=== PATIENT | female | born 1955 | race Hispanic/Latino ===

== ENCOUNTER 2017-11-06 11:50 | Outpatient (CLI) | payer BC | END 2017-11-06 11:51 | disposition home or self-care (01) | LOC: BICRAD 11:50 | PROVIDERS: ATTEND Physician Assistant Medical | DX: K59.00 Constipation, unspecified (principal); R14.0 Abdominal distension (gaseous) | CPT/HCPCS: 74022 ==

== ENCOUNTER 2018-05-10 08:59 | Outpatient (CLI) | payer BC | END 2018-05-10 09:00 | disposition home or self-care (01) | LOC: BICMAMMO 08:59 | PROVIDERS: ATTEND Family Medicine | DX: Z12.31 Encounter for screening mammogram for malignant neoplasm of breast (principal); Z80.3 Family history of malignant neoplasm of breast | CPT/HCPCS: 77063; 77067 ==

== ENCOUNTER 2018-10-31 10:07 | Outpatient (CLI) | payer BC ==
--- NOTE | 2018-10-31 12:27 | MRI ---
MRI RIGHT KNEE: 10/31/2018 PROVIDED CLINICAL HISTORY: Right knee pain. FINDINGS: The anterior cruciate ligament, posterior cruciate ligament, medial collateral ligament, and lateral collateral ligament complex demonstrate an intact MR appearance, as does the extensor mechanism. There is a complex, nondisplaced tear involving the body and body-posterior horn junction of the medi al meniscus. The lateral meniscus demonstrates no evidence for tear. No focal articular cartilage defect is apparent. The amount of fluid within the knee joint appears physiologic. Subcortical cyst-like change is noted within the anterior aspect of the proximal fibula, adjacent to the proximal tibiofibular joint. Regional marrow and muscular signal appear otherwise unremarkable. IMPRESSION: Medial meniscal tear, as described. POS: [facility]
== END 2018-10-31 10:08 | disposition home or self-care (01) ==
LOC: SCSMRI 10:07
PROVIDERS: ATTEND Family Medicine
DX: M25.561 Pain in right knee (principal); S83.241A Other tear of medial meniscus, current injury, right knee, initial encounter

== ENCOUNTER 2018-12-05 13:35 | Observation (INO) | payer BC ==
--- NOTE | 2018-12-05 13:48 | PDOC.FPRHP ---
- History of Present Illness Chief Complaint: Dysarthria History of Present Illness: 63 yo f complains of a fall in home on Sunday night after taking tramadol that the doctor had given her for pain of her knee (has a meniscal tear) with surgery planned next week. She went to [facility] Sunday night and they came her "something to counteract the reaction to the tramadol." They also did a head CT which was normal. Sunday came and saw the patient and she says she was fine. Then later that evening she was talking with her brothers and they told her she sounded sick. So this morning she went and saw Dr. Mathews, who said the patient was slurring her words. She states her left leg has been week, but she has been using it more since she hurt her knee (right). Endorses changes in her vision. States it feels like she erin falls asleep. Denies tingling/numbness. Weakness in left leg is new and recently started after she passed out. ED Course: Direct admit from Dr Mathews - Allergies/Adverse Reactions Allergies Allergy/AdvReac Type Severity Reaction Status Date / Time vancomycin Allergy Verified 10/29/14 08:38 - Home Medications Medication Instructions Recorded Confirmed Type ALPRAZolam [Xanax XR] 2 mg PO HS 10/29/14 12/05/18 History buPROPion HCl [buPROPion HCl SR] 150 mg PO DAILY 12/05/18 12/05/18 History - History PMHx: recent syncopal episode, IBS, OA, Anxiety, HTN, Insomnia, hypothyroidism, HLD, Righ meniscal tear, tinnitus/hearing loss (wears hearing aids, Hx of Bipolar/MDD but not on medications currently PSHx: None FHx: Father-diabetes, CVA, Mother-CVA Social: hx of alcohol abuse (sober 13 years); denies smoking, used to smoke at 23 years old, but quit shortly after that; no hx of drug use - Review of Systems General: denies: fever/chills, weight/appetite/sleep changes Eyes: reports: vision changes. denies: eye pain ENT: reports: nasal congestion, rhinorrhea Respiratory: reports: cough, congestion. denies: shortness of breath Cardiovascular: denies: chest pain, palpitation Gastrointestinal: reports: diarrhea (IBS), constipation (ibs). denies: nausea, vomiting Genitourinary: denies: incontinence, dysuria Skin: denies: rashes, lesions Musculoskeletal: reports: pain (knee), stiffness (R knee) Neurological: reports: weakness. denies: seizure Psychological: reports: anxiety, depression - Vital signs BP: 135/77 HR: 74 RR: 16 Tmax: 98.0 Pox: 99% on RA Wt: 67kg - Physical Exam Constitutional: NAD, awake, alert and oriented, well developed, other ( dysarthria, slowed speech and thought.) HEENT: normocephalic and atraumatic, PERRLA, EOMI, conjunctiva clear, grossly normal hearing, MMM, oropharynx clear Neck: supple, trachea midline, no bruits Heart: RRR, normal S1/S2, no murmurs/rubs/gallops, pulses present, no edema Lungs: CTAB, no respiratory distress, good air movement Abdomen: soft, non-tender, bowel sounds present Musculoskeletal: normal structure, normal tone Neurological: CN II-XII intact, DTRs 2+, other (right forearm decreased sensation to temperature) -Neurological: trouble following commands; decreased bag printer strength on left side 5/5 b/l lower extremity strength except for flexion/extension of left foot was 4 /5 mild pronator drift on left sensation to touch, temp intact with exception of right arm to temp. cerebellar testing slow but able to complete Skin: no rash/lesions, good turgor, capillary refill <2 seconds Psychiatric: normal mood and affect, good judgment and insight (unable to tell difference in speech), intact recent and remote memory (slowed) FMR H&P: Results - Labs Result Diagrams: 12/05/18 15:20 12/05/18 15:20 FMR H&P: A/P - Problem List (1) CVA (cerebral vascular accident) Current Visit: Yes Status: Acute Code(s): I63.9 - CEREBRAL INFARCTION, UNSPECIFIED (2) Depression Current Visit: Yes Status: Chronic Code(s): F32.9 - MAJOR DEPRESSIVE DISORDER, SINGLE EPISODE, UNSPECIFIED (3) Anxiety Current Visit: Yes Status: Chronic Code(s): F41.9 - ANXIETY DISORDER, UNSPECIFIED (4) Osteoarthritis Current Visit: Yes Status: Chronic Code(s): M19.90 - UNSPECIFIED OSTEOARTHRITIS, UNSPECIFIED SITE (5) HTN (hypertension) Current Visit: Yes Status: Chronic Code(s): I10 - ESSENTIAL (PRIMARY) HYPERTENSION (6) Hypothyroidism Current Visit: Yes Status: Chronic Code(s): E03.9 - HYPOTHYROIDISM, UNSPECIFIED (7) HLD (hyperlipidemia) Current Visit: Yes Status: Chronic Code(s): E78.5 - HYPERLIPIDEMIA, UNSPECIFIED (8) Insomnia Current Visit: Yes Status: Chronic Code(s): G47.00 - INSOMNIA, UNSPECIFIED (9) Tinnitus Current Visit: Yes Status: Chronic Code(s): H93.19 - TINNITUS, UNSPECIFIED EAR (10) IBS (irritable bowel syndrome) Current Visit: Yes Status: Chronic - Plan 63yo female with pmh HTN, HLD, hypothyroidism and recent syncope/fall presents for evaluation for CVA vs subdural hematoma CVA vs subdural hematoma - Fell 12/03/18, CT at [facility] normal at that time - Dysarthria, slowed speech, distal left sided weakness, right temp sensation loss - CBC, CMP, TSH, PT/INR, A1c, Mg, Phos ordered - CT/CTA head and neck - MRI, will need anesthesia consult due to claustrophobia - Echo ordered - Neurochecks q4h - Start Atorvastatin & ASA after head CT Encephalopathy - UDS ordered - No signs of infection, UA ordered - No hypoxia - Manage as above Possible Syncope - Ordered EKG, UDS, orthostatics Depression - Continue home Wellbutrin Anxiety - Will hold home Alprazolam for now Insomnia - Will hold Alprazolam for now HTN HLD - Statin after CT IBS - Continue home meds Hypothyroidism - Continue home meds Right meniscal tear - Holding Tramadol due to fall, Tylenol for pain Hx of Bipolar - Pt not taking medications for this. Stable Code Status: FULL DVT ppx: SCDs PCP: Dr Mathews FMR H&P: Upper Level - Pertinent history 63 yo f with pmhx of htn, hld presents s/p fall on Sunday after taking tramadol for a right knee meniscal tear and since that times has noticed some left leg weakness, confusion (trouble understanding), and dysarthria. - Plan Date/Time: 12/05/18 1348 A/P: #Focal neuro deficits suspicious for CVA: dysarthria, comprehension, left leg weakness, decreased left hand bag printer strength, decreased sensation to pain on right arm. Will order a CT head w/o contrast, and CTA head and neck, as well as a cbc, cmp, lipid profile, tsh, hba1c, EKG, TTE, mg, phosph to further evaluate for a CVA:Will order MRI for the morning and consult anesthesia. Will start atorvastatin 40mg pending CT head and will give aspirin pending head CT #Encephalopathy-difficulty with comprehension, dysarthia. CT head, CTA Head/neck , MRI, labs, pt afebrile and so other s/s of infection. Not hypoxic. Concern for intracranial hemorrhage after recent syncopal episode on Sunday. #Recent syncopal episode-now with deficits (see above); will monitor on tele and get an EKG, stroke workup, orthostatics #HTN-will order a CT head w/o contrast to rule out a bleed, and base bp goals on imaging. #HLD-will restart pt on a statin after obtaining CT head w/o contrast. #IBS-restart home meds #hypothyroidism-ordered tsh, restart home meds #Righ meniscal tear-monitor, tylenol prn pain #tinnitus/hearing loss (wears hearing aids, #OA-monitor #Anxiety-monitor #Insomnia-monitor #Hx of Bipolar/MDD but not on medications currently-monitor DVT-scds, consider lovenox pending head CT Code-full dispo-anticipate two nights H. John Arechiga MD, PGY-2 I, [], have evaluated this patient and agree with findings/plan as outlined by internet sales director resident. Pertinent changes/additions are listed here. Addendum - Attending - Attending Attestation Date/Time: 12/05/18 [id number] I personally evaluated the patient and discussed the management with Dr. Rod /John. I agree with the History, Examination, Assessment and Plan documented above with any addition or exceptions noted below. Patient here for concern for acute neurological insult. She has 2-3 days of intermittent altered mentation, some L sided weakness, and change in speech noticed by both patient and family. There also may be some intermittent confusion. Reports symptoms started after a fall after taking Tramadol on Sunday, and patient has not taken medication since that time. On exam, she has some mild dysarthria and possible mild slurring of speech. Exam overall non focal on my exam, diffuse weakness. She did have issues with speech repetition. Cerebellar testing overall normal for me. Speech and thought content appears slowed overall. Patient to be admitted for CVA r/o and encephalopathy workup. She does have a degree of conductive aphasia that could signify focal deficit. Check CT brain to ensure no hemorrhage or hematoma formation from her fall. CTA head and neck, and obtain MRI. Neuro checks. Monitor vitals and HR/rhythm. Check orthostatics. Encephalopathy workup. Consider neuro consult if abnormalites noted. Further mgmt per initial results.
[2018-12-05 13:50] VITALS: BMI 24.6
[2018-12-05] MEDS ORDERED: Ondansetron ODT 4 MG TAB PO PRN (14:45)
[2018-12-05 15:28] LABS: #Eosinphils 0.1 thou/uL (0.0-0.7); #Lymphocytes 1.1 thou/uL (1.20-3.40); #Monocytes 0.4 thou/uL (0.11-0.59); #Neutrophils 3.9 thou/uL (1.40-6.50); %Basophils 0.7 % (0.0-1.0); %Eosinophils 2.5 % (0.0-10.0); %Lymphocytes 19.9 % (21.0-51.0); %Monocytes 6.5 % (0.0-10.0); %Neutrophils 70.4 % (42.0-75.0); Hemoglobin 11.5 g/dL (12.0-16.0); Mean Corpuscular Hemoglobin 28.2 pg (27.0-31.0); Mean Corpuscular Volume 88.1 fL (78.0-98.0); Mean Platelet Volume 6.2 fL (7.4-10.4); Platelet Count 308 thou/uL (130-400); Red Blood Cell (RBC) Count 4.09 mill/uL (4.20-5.40); White Blood Cell (WBC) Count 5.6 thou/uL (4.8-10.8)
[2018-12-05 15:35] LABS: PTT 29.2 SEC (22.9-36.1)
[2018-12-05 16:20] LABS: Anion Gap 15 mmol/L (10-20); BUN (Urea Nitrogen) 9 mg/dL (9.8-20.1); Calc. Creatinine Clearance 77 mL/min (70-130); Calcium 9.5 mg/dL (7.8-10.44); Carbon Dioxide 21 mmol/L (23-31); Chloride 109 mmol/L (98-107); Estimated GFR-MDRD 72; Glucose 89 mg/dL (80-115); Potassium 3.6 mmol/L (3.5-5.1); Sodium 141 mmol/L (136-145)
[2018-12-05 16:21] LABS: Acetaminophen Less than 6.0 mcg/mL (10.0-30.0); Alcohol Less than 10 mg/dL (Less than 10); Salicylate Less than 8.0 mg/dL (15.0-30.0)
[2018-12-05] MEDS ORDERED: ISOVUE-370 76%-LOCM 1 ML ONE (16:26)
--- NOTE | 2018-12-05 17:40 | CT ---
CTA OF THE BRAIN WITH AND WITHOUT IV CONTRAST: 12/05/18 INDICATION: History of altered mental status and left weakness. COMPARISON: Prior CT of the brain dated 03/20/16. FINDINGS: NONCONTRAST BRAIN: No acute infarct, hemorrhage, or hydrocephalus is present. Septum pellucidum and third ventricle are midline. Skull and extracranial soft tissues appear within normal limits. There is an air fluid leve l within the left maxillary sinus. There is moderate mucosal thickening within the left maxillary sin us. CTA OF THE HEAD: No hemodynamically significant stenosis, occlusion or aneurysmal formation is demonstrated. No area o f abnormal enhancement is demonstrated. Septum pellucidum and third ventricle are midline. CTA OF THE NECK: Dental amalgam limits visualization of the oral cavity. The visualized aerodigestive tract is normal appearing. No pathologically enlarged lymph nodes are evident. The thyroid, submandibular, and paroti d glands appear within normal limits. No hemodynamically significant stenosis is seen involving the i nternal carotid arteries or vertebral arteries bilaterally. The aortic arch and great vessel origins appear within normal limits. The lung apices are clear. No acute osseous abnormality is evident. There is scattered degenerative and osteoarthritic change. IMPRESSION: 1. No hemodynamically significant stenosis, occlusion or aneurysmal formation demonstrated. 2. No abnormal enhancement seen. 3. No acute intracranial abnormalities. POS: [place]
[2018-12-05] MEDS ORDERED: Aspirin Chewable 81 MG TAB PO SCH (18:15)
[2018-12-05] MEDS: Acetaminophen 500 MG TAB PO PRN (18:20)
[2018-12-05 19:04] LABS: Amphetamine Not Detected (NotDetected); Barbiturates Screen Not Detected (NotDetected); Benzodiazepine Screen Detected (NotDetected); Cocaine Metabolite Screen Not Detected (NotDetected); Medtox Control Line Valid? VALID (VALID); Medtox Reader # READER 1; Methadone Not Detected (NotDetected); Methamphetamine Not Detected (NotDetected); Opiate Screen Not Detected (NotDetected); Oxycodone Screen Not Detected (NotDetected); Phencyclidine (PCP) Not Detected (NotDetected); THC/Cannabinoid Screen Not Detected (NotDetected); Tricyclic Screen Not Detected (NotDetected)
[2018-12-05] MEDS ORDERED: ALPRAZOLAM 2 MG PO SCH (21:00)
[2018-12-05] MEDS ORDERED: ALPRAZolam 1 MG TAB PO PRN (21:03)
[2018-12-06] MEDS: Acetaminophen 500 MG TAB PO PRN (05:43)
[2018-12-06 06:24] LABS: Anion Gap 10 mmol/L (10-20); BUN (Urea Nitrogen) 8 mg/dL (9.8-20.1); Calc. Creatinine Clearance 78 mL/min (70-130); Carbon Dioxide 23 mmol/L (23-31); Chloride 110 mmol/L (98-107); Cholesterol 229 mg/dl (< 200 Desired); Estimated GFR-MDRD 73; Glucose 85 mg/dL (80-115); HDL Cholesterol 46 mg/dL (>60 Neg Risk); LDL Cholesterol, Calculated 162 mg/dL; Potassium 3.3 mmol/L (3.5-5.1); Sodium 140 mmol/L (136-145); Triglycerides 103 mg/dL (Less than 150)
--- NOTE | 2018-12-06 06:28 | PDOC.FM ---
- Subjective Subjective: Reports anxiety. Anxious about when MRI will be preformed. Denies weakness, paresthesias. A&Ox3. No overnight events. - Objective MAR Reviewed: Yes Vital Signs & Weight: Vital Signs (12 hours) Temp Pulse Resp BP Pulse Ox 12/06/18 04:00 99.2 F 62 16 105/66 98 12/06/18 00:00 98.6 F 69 16 113/56 L 97 12/05/18 20:00 98.2 F 68 16 133/82 97 Weight Weight 67.132 kg I&O: 12/04/18 12/05/18 12/06/18 06:59 06:59 06:59 Intake Total 500 Balance 500 Result Diagrams: 12/05/18 15:20 12/06/18 05:31 Phys Exam - Physical Examination Constitutional: NAD HEENT: moist MMs Neck: supple Respiratory: no wheezing, clear to auscultation bilateral Cardiovascular: RRR, no significant murmur Gastrointestinal: soft, non-tender, positive bowel sounds Musculoskeletal: no edema Neurological: moves all 4 limbs DTR 2+ biceps/patellar Psychiatric: normal affect, A&O x 3 Skin: normal turgor Dx/Plan (1) CVA (cerebral vascular accident) Code(s): I63.9 - CEREBRAL INFARCTION, UNSPECIFIED Status: Acute (2) Depression Code(s): F32.9 - MAJOR DEPRESSIVE DISORDER, SINGLE EPISODE, UNSPECIFIED Status : Chronic (3) Anxiety Code(s): F41.9 - ANXIETY DISORDER, UNSPECIFIED Status: Chronic (4) Osteoarthritis Code(s): M19.90 - UNSPECIFIED OSTEOARTHRITIS, UNSPECIFIED SITE Status: Chronic (5) HTN (hypertension) Code(s): I10 - ESSENTIAL (PRIMARY) HYPERTENSION Status: Chronic (6) Hypothyroidism Code(s): E03.9 - HYPOTHYROIDISM, UNSPECIFIED Status: Chronic (7) HLD (hyperlipidemia) Code(s): E78.5 - HYPERLIPIDEMIA, UNSPECIFIED Status: Chronic (8) Insomnia Code(s): G47.00 - INSOMNIA, UNSPECIFIED Status: Chronic (9) Tinnitus Code(s): H93.19 - TINNITUS, UNSPECIFIED EAR Status: Chronic (10) IBS (irritable bowel syndrome) Status: Chronic - Plan Plan: 63yo female with pmh HTN, HLD, hypothyroidism and recent syncope/fall presents for evaluation for CVA vs subdural hematoma CVA vs subdural hematoma - Fell 12/03/18, CT at [facility] normal at that time - Dysarthria, slowed speech, distal left sided weakness, right temp sensation loss - CT/CTA head and neck nml - MRI today, will need anesthesia consult due to claustrophobia - Echo ordered - Neurochecks q4h - Start Atorvastatin & ASA after head CT Encephalopathy - UDS neg with exception of BZs, pt on alprazolam at home - No signs of infection - No hypoxia - Manage as above Possible Syncope - EKG nml, UDS neg with exception of BZs, pt on alprazolam at home - Orthostatics neg Depression - Continue home Wellbutrin Anxiety - Will hold home Alprazolam for now Insomnia - Will hold Alprazolam for now HTN HLD - Start Statin IBS - Continue home meds Hypothyroidism - Continue home meds Right meniscal tear - Holding Tramadol due to fall, Tylenol for pain Hx of Bipolar - Pt not taking medications for this. Stable Code Status: FULL DVT ppx: SCDs PCP: Dr Mathews Addendum - Attending - Attending Attestation Date/Time: 12/06/18 [id number] I personally evaluated the patient and discussed the management with Dr. Rod. I agree with the History, Examination, Assessment and Plan documented above with any addition or exceptions noted below. Patient doing well, speech somewhat improved. Awaiting MRI to see if this is due to possible mild CVA. Speech therapy has recommended outpatient ST and awaiting PT recs. Otherwise, workup negative. She has good risk factor control but hyperlipidemia and statin has been started. Likely discharge this afternoon with normal MRI, otherwise will need Neuro consult if CVA found.
[2018-12-06] MEDS ORDERED: Aspirin 81 mg Enteric Coated Tablet PO SCH ×2 (09:00)
[2018-12-06] MEDS ORDERED: Bupropion 150 MG SR TAB PO SCH (09:00)
[2018-12-06 11:27] VITALS: TEMP 98.1
[2018-12-06 12:22] VITALS: BP 143/87
[2018-12-06] MEDS ORDERED: Midazolam HCl 2 mg/2 ml Vial ONE (13:30)
--- NOTE | 2018-12-06 14:43 | MRI ---
MRI BRAIN WITH AND WITHOUT CONTRAST: DATE: 12-06-18 HISTORY: 63-year-old female with acute stroke symptoms, dysarthria and left upper extremity weakness. TECHNIQUE: Multiple sequences obtained in axial, sagittal, and coronal planes; pre and post IV injection of gado linium-based contrast agent: 15 mL MultiHance FINDINGS: The ventricles are normal in size and configuration. There is no major intraaxial signal abnormality , restricted diffusion, abnormal intraaxial enhancement, mass, midline shift or any other mass effect , recent intraaxial hemorrhage, or extraaxial fluid collection. IMPRESSION: Normal. jn POS: [facility]
[2018-12-06] MEDS ORDERED: PROPOFOL 200 MG/20 ML VIAL ONE (15:47)
[2018-12-06] MEDS ORDERED: Atorvastatin Calcium 40 MG TAB PO SCH (21:00)
--- NOTE | 2018-12-06 22:15 | DIS ---
DATE OF ADMISSION: 12/05/2018 DATE OF DISCHARGE: 12/06/2018 RESIDENT: Sadia Rod MD, PGY-1. ADMITTING ATTENDING: Jose D Bahena MD DISCHARGE ATTENDING: Jose D Bahena MD CONSULTS: None. PROCEDURES: 1. CTA, no hemodynamically significant stenosis, occlusion, or aneurysmal formation demonstrated. No abnormal enhancement is seen. No acute intracranial abnormality. 2. Brain MRI, normal. PRIMARY DIAGNOSES: 1. Dysarthria. 2. Encephalopathy. SECONDARY DIAGNOSES: 1. Possible syncope. 2. Depression. 3. Anxiety. 4. Insomnia. 5. Hypertension. 6. Hyperlipidemia. 7. Irritable bowel syndrome. 8. Hypothyroidism. 9. Right meniscal tear. 10. History of bipolar. DISCHARGE MEDICATIONS: 1. Aspirin 81 mg daily. 2. Atorvastatin 40 mg daily. 3. Bupropion 150 mg daily. 4. Alprazolam 2 mg at bedtime. HISTORY OF PRESENT ILLNESS/HOSPITAL COURSE: Ms. Davila is a 63-year-old female, who presented to the ED as a direct admit from Dr. Mathews due to dysarthria after a fall in her home 2 nights prior, where she hit her head after taking an unknown amount of tramadol. She went in after her fall to [facility], where CT was performed and was normal. Sunday, [facility] had come to evaluate the patient and said she was fine. Later that evening, she was talking to family members on the phone and they noticed her speech was slurred as well as when she went in to Dr. Mathews, she reported similar findings. She states that her left leg has been weak. She noticed this because she has been using her left leg more since she hit her right knee. Endorses changes in her vision. Her speech was also very slowed. On exam, her vital signs were all within normal limits. She did have slurred speech and thought, and dysarthria. Her neurological exam was normal with the exception of decreased forearm sensation to temperature and left wrist tool and die technician was 4/5, as well as left plantar flexion and extension. She did have a mild pronator drift on the left side and her cerebellar testing was slow, but she was able to complete it. Her basic labs were ordered that were all within normal limits with the exception of her UDS being positive for benzodiazepines, which she has a home prescription for and her cholesterol was elevated at 229. Echo was performed and is pending results. This will be followed up. MRI was normal. CT, CTA head and neck, normal. She was started on atorvastatin and aspirin. Her dysarthria did seem to improve throughout her hospitalization. As far as her possible syncope, EKG and UDS normal. Orthostatics were negative. Her chronic medical problems of depression, anxiety, insomnia, hypertension, hyperlipidemia, IBS, hypothyroidism. Continued with home medications with the exception of holding alprazolam due to her recent fall and poor mentation. DISPOSITION: Stable. DISCHARGE INSTRUCTIONS: 1. Location: Home. 2. Diet: Heart healthy. 3. Activity: No restrictions. 4. Followup: Follow up with Dr. Mathews within 7 days. Job ID: [id number]
== END 2018-12-06 16:12 | disposition home or self-care (01) ==
LOC: INTOOBSV 13:35 → 2SE 13:35
PROVIDERS: ADMIT Family Medicine; ATTEND Family Medicine
DX: R47.1 Dysarthria and anarthria (principal); G93.40 Encephalopathy, unspecified; F41.9 Anxiety disorder, unspecified; F31.9 Bipolar disorder, unspecified; I10 Essential (primary) hypertension; E78.5 Hyperlipidemia, unspecified; K58.9 Irritable bowel syndrome, unspecified; E03.9 Hypothyroidism, unspecified; M19.90 Unspecified osteoarthritis, unspecified site; G47.00 Insomnia, unspecified; S83.241A Other tear of medial meniscus, current injury, right knee, initial encounter; Z87.891 Personal history of nicotine dependence; Z88.1 Allergy status to other antibiotic agents; Z79.82 Long term (current) use of aspirin; Z79.899 Other long term (current) drug therapy
CPT/HCPCS: 36415; 70496; 70498; 70553; 80048; 80061; 80306; 80307; 84439; 84443; 85025; 85610; 85730; 93306; G0378; J2250; J2704; Q0162; Q9966

== ENCOUNTER → 2019-03-18 | Day surgery (SDC) | payer BC ==
--- NOTE | 2019-03-18 14:18 | CT ---
CT of the abdomen and pelvis with and without IV contrast utilizing an enterography protocol Indication: History of abdominal distention and chronic constipation for the last 4-5 years. TECHNIQUE: Multiple CT images were obtained of the abdomen and pelvis with and without IV contrast utilizing ent erography protocol. 100 mL of Isovue-370 was utilized in addition to p.o. intake of VoLumen. Axial, sagittal and coronal reformatted images were constructed from the raw data. COMPARISON: Prior CT the abdomen and pelvis with contrast dated May 22, 2016. FINDINGS: The lung bases are clear. No focal hepatic lesion is evident. The pancreas, spleen, adrenal glands and left kidney are normal appearing. There is a small subcentim eter cyst seen within the right mid kidney. There are mild vascular calcification involving abdominal aorta. No enlarged lymph nodes or free fluid is identified. The small bowel is of normal caliber. The mucosal pattern appears within normal limits. No overt wall thickening is evident. The visualized TI is normal-appearing. There is a normal appendix within the right lower quadrant of the abdomen. There is fluid distention of the colon from Volumen administration. The colon appears within normal l imits. The bladder is partially decompressed. The rectum and perirectal soft tissues are unremarkable appear ing. There is scattered degenerative and osteoarthritic change present. IMPRESSION: No suspicious focal bowel abnormality seen. Transcribed Date/Time: 03/18/2019 3:16 PM
== END ==
LOC: RAD 12:26 → EDSTATUS 14:00
PROVIDERS: ATTEND Internal Medicine Gastroenterology
DX: K59.09 Other constipation (principal); R14.0 Abdominal distension (gaseous)
CPT/HCPCS: 74178; 82565

== ENCOUNTER 2019-08-21 07:48 | Observation (INO) | payer BC ==
[2019-08-21] MEDS ORDERED: Aspirin 325 MG TAB ONE (08:48)
--- NOTE | 2019-08-21 09:52 | PDOC.FPRHP ---
- History of Present Illness Chief Complaint: fall History of Present Illness: This is a 63yo F who presented to the ER today from [facility] after a fall early this morning. The patient states she was running along a track around 0300. She was looking at her phone and then next thing she knew she was falling down a hill next to the track. She is unsure how it happened. She denies any headache, vision changes, SOB, chest pain or palpitations at the time. She is unsure if she lost consciousness but she remembers thinking "what happened" after she fell down the hill. Denies any post-ictal confusion or state. Denies any loss of bowels. She was able to crawl back up the hill and get help. She states she has no hx of cardiac issues. Patient states that she did have numbness in her left leg about 2 days ago that resolved on its own. She did not notice any slurred speech with this episode this morning, but per ER report patient had slurred speech. Patient states that she has been under a lot of stress lately. She states that her mother 2 years ago and that her sister blames her. She states this has been a huge stressor for her lately. She takes xanax and wellbutrin for her anxiety/depression. ED Course: CT brain neg; CTA head/neck: normal; EKG NSR - Allergies/Adverse Reactions Allergies Allergy/AdvReac Type Severity Reaction Status Date / Time vancomycin Allergy Verified 10/29/14 08:38 - Home Medications Medication Instructions Recorded Confirmed Type buPROPion HCl [buPROPion HCl SR] 150 mg PO DAILY 12/05/18 12/05/18 History ALPRAZolam 2 mg PO HS 08/21/19 08/21/19 History Naproxen 1 tab PO PRN PRN 08/21/19 08/21/19 History - History PMHx: anxiety/depression, migraine headaches PSHx: R knee meniscus repair, breast implants and removal FHx: mother & father - strokes, father - DM, BPH, GM - pancreatic cancer Social: smoked from age [age] - a few cigs/day - not current smoker, 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 Lives alone. Takes care of her elderly father. Mother 2 years ago and has caused great stress - Review of Systems General: denies: fever/chills, weight/appetite/sleep changes, night sweats, fatigue Eyes: denies: vision changes ENT: denies: nasal congestion Respiratory: denies: cough, congestion, shortness of breath, exercise intolerance Cardiovascular: denies: chest pain, palpitation, edema, paroxysmal nocturnal dyspnea, orthopnea Gastrointestinal: denies: nausea, vomiting, diarrhea, constipation, abdominal pain Genitourinary: denies: dysuria Skin: denies: rashes, lesions Musculoskeletal: denies: pain, tenderness, stiffness, swelling, arthritis/ arthralgias Neurological: reports: numbness. denies: syncope, seizure, weakness Psychological: reports: anxiety, depression - Vital signs BP: 132/80 HR: 70 RR: 16 Tmax: 98.6 Pox: 100% on RA Wt: 70kg - Physical Exam Constitutional: NAD, awake, alert and oriented, well developed HEENT: normocephalic and atraumatic, PERRLA, EOMI, no scleral icterus, grossly normal vision, grossly normal hearing, normal nasal mucosa, MMM Neck: supple, FROM, trachea midline, no LAD, no JVD, no thyromegaly, no bruits Chest: no-tender to palpation, no lesions Heart: RRR, normal S1/S2, no murmurs/rubs/gallops, pulses present, no edema Lungs: CTAB, no respiratory distress, good air movement, no rales/rhonchi, no wheezing, no retractions Abdomen: soft, non-tender, bowel sounds present, no masses/distention Musculoskeletal: normal structure, normal tone, ROM grossly normal Neurological: no focal deficit, CN II-XII intact, normal sensation -Neurological: no dysmetria, no dysdiadochokinesia; strength 5/5 in all extremities; normal gait; no facial droop or slurred speech appreciated Skin: no rash/lesions, good turgor, capillary refill <2 seconds Heme/Lymphatic: no unusual bruising or bleeding, no purpura, no petechia Psychiatric: normal mood and affect, good judgment and insight, intact recent and remote memory -Psychiatric: AXOX3 - knows name, , year FMR H&P: Results - EKG Interpretation EKG: NSR FMR H&P: A/P - Problem List (1) TIA (transient ischemic attack) Current Visit: Yes Status: Acute Code(s): G45.9 - TRANSIENT CEREBRAL ISCHEMIC ATTACK, UNSPECIFIED (2) Anxiety Current Visit: No Status: Chronic Code(s): F41.9 - ANXIETY DISORDER, UNSPECIFIED (3) Depression Current Visit: No Status: Chronic Code(s): F32.9 - MAJOR DEPRESSIVE DISORDER , SINGLE EPISODE, UNSPECIFIED - Plan #TIA r/o Patient presenting after while while running. Hx of left leg numbness 2 days prior. Patient with normal CT brain, CTA head/neck and EKG. Fam hx of CVA. - Will order MRI, patient states she is claustrophobic and will need something to calm her down prior to the procedure. States she has had to "go under" for a prior MRI. She states ativan will not work. - FLP in 11/2018 showing Total chol: 229, TG 103, LDL 162, HDL 46. ASCVD risk of 4.8% - no indication for statin therapy at this time. Will encouraged continued diet and exercise. Home meds show statin, but patient has not been taking. - Will order HbA1c #Normocytic Anemia Hgb 10.4, MCV 89 - Will order iron studies to work up further along with B12/folate #Anxiety/depression - Will continue patient's home meds of xanax and wellbutrin Code: FULL Diet: Reg VTE: SCDs Dispo: admit to stroke, could potentially go later today if MRI can be done or tomorrow Case discussed with Dr. Barkley
[2019-08-21] MEDS ORDERED: Lorazepam 1 MG TAB PO PRN (10:04)
[2019-08-21] MEDS ORDERED: PROPOFOL 200 MG/20 ML VIAL ONE (10:14)
[2019-08-21] MEDS ORDERED: Lidocaine 1% PF 5 ML VIAL ONE (10:14)
[2019-08-21] MEDS ORDERED: Ondansetron PF 4 MG/2 ML Vial IVP PRN (10:35)
[2019-08-21] MEDS ORDERED: Ondansetron ODT 4 MG TAB PO PRN (10:35)
[2019-08-21 11:13] VITALS: BMI 25.2
--- NOTE | 2019-08-21 11:58 | HP ---
I have examined the patient. I have discussed the case with Dr. Jillian Curtis. I agree with her assessment and plan. HISTORY OF PRESENT ILLNESS: Briefly, Ms. Davila is a pleasant 63-year-old lady, who was out running very early this morning. She was looking at her fall, and the next thing she knew she was falling down a hill next to the track. She really did not have any headache, blurred vision, chest pain, or palpitations. She does not remember whether or not she lost consciousness. She went to a local ER, where she was noted to have slurred speech. She had testing done there and then subsequently transferred here. At the outlying ER, her CT brain was negative and CTA of the head and neck was also negative. PHYSICAL EXAMINATION: GENERAL: This morning, she is resting in bed. She is completely awake, alert, oriented, in no distress. VITAL SIGNS: Her blood pressure is 130/80. Her heart rate is 70. She is afebrile, and her room air pulse ox is 100%. EAR, NOSE, AND THROAT: No erythema or exudate. NECK: Supple. No neck stiffness. CARDIAC: Heart rhythm regular. No gallop or murmur noted. LUNGS: Clear. No rales or wheezes. ABDOMEN: Flat and soft. No guarding, rebound, or rigidity. NEUROLOGIC: No focal deficits. LABORATORY DATA: Labs at the outlying ER are all normal. ASSESSMENT: Fall. I doubt that this was syncope. I doubt that this was cardiac arrhythmia, and I doubt that this was a transient ischemic attack. Her workup so far has been negative, and she will likely be ready for discharge if her MRI is normal. Job ID: [id number]
[2019-08-21] MEDS ORDERED: Acetaminophen 325 MG TAB PO PRN (11:59)
[2019-08-21 12:46] LABS: Hemoglobin A1c 5.5 % (4.0-6.0)
[2019-08-21 13:04] LABS: Iron 49 ug/dL (50-170); Iron Binding Capacity, Total 304 mcg/dL (265-497)
[2019-08-21 13:05] LABS: Iron 49 ug/dL (50-170); Iron Binding Capacity, Total 304 mcg/dL (265-497); Transferrin, Serum 243 mg/dL (173-360)
[2019-08-21 13:06] LABS: Bacteria/HPF 3+ HPF (None Seen); RBC/HPF None Seen HPF (0-3); Squamous Epithelial 0-3 HPF (0-3); WBC/HPF None Seen HPF (0-3)
[2019-08-21 13:11] LABS: Amphetamine Not Detected (NotDetected); Barbiturates Screen Not Detected (NotDetected); Benzodiazepine Screen Detected (NotDetected); Cocaine Metabolite Screen Not Detected (NotDetected); Medtox Control Line Valid? VALID (VALID); Medtox Reader # READER 4; Methadone Not Detected (NotDetected); Methamphetamine Not Detected (NotDetected); Opiate Screen Not Detected (NotDetected); Oxycodone Screen Not Detected (NotDetected); Phencyclidine (PCP) Not Detected (NotDetected); THC/Cannabinoid Screen Not Detected (NotDetected); Tricyclic Screen Not Detected (NotDetected)
[2019-08-21 13:30] LABS: Ferritin 4.05 ng/mL (10-291)
[2019-08-21 13:51] LABS: Clarity Clear (Clear)
[2019-08-21 13:52] LABS: Glucose, Urine (Dipstick) Negative (Negative); Leukocyte Negative Leu/uL (Negative); Nitrite Negative (Negative); Protein, Urine (Dipstick) Negative (Neg-Trace)
[2019-08-21 13:53] LABS: Bilirubin Negative (Negative); Blood, Urine Negative (Negative); Urobilinogen 0.2 mg/dL (Less than 2)
[2019-08-21 15:34] VITALS: TEMP 98.4
[2019-08-21] MEDS ORDERED: Midazolam HCl 2 mg/2 ml Vial ONE (15:57)
--- NOTE | 2019-08-21 16:49 | MRI ---
EXAM: Brain MRI Without contrast: HISTORY: TIA fall while jogging this morning COMPARISON: None FINDINGS: Multiplanar multisequence MRI examination of the brain is performed. The ventricles are within normal limits of size shape and position. No mass or midline shift. No evidence for intra or extra-axial hemorrhage. No evidence for abnormal restricted diffusion. No evidence for acute infarct. Normal-appearing flow voids are noted. The extracranial soft tissues and calvarial marrow signal appear within normal limits. Ethmoid sinus mucosal disease with minute changes in the left maxillary sinus and nasal turbinate con gestion. Very tiny punctate white matter changes, nonspecific probably small foci of chronic white matter isch emic change IMPRESSION: No significant acute intracranial process. No mass or bleed. No acute infarct. Sinus mucosal disease.
[2019-08-21] MEDS ORDERED: Promethazine HCl 25 MG/ML VIAL SLOW IVP PRN (16:53)
[2019-08-21] MEDS ORDERED: Ondansetron HCl/PF 4 MG/2 ML Vial IVP PRN (16:53)
[2019-08-21] MEDS ORDERED: Promethazine HCl 25 MG/ML VIAL IM PRN (16:53)
[2019-08-21 17:56] VITALS: BP 133/87
[2019-08-21] MEDS ORDERED: ALPRAZolam 1 MG TAB PO SCH (21:00)
--- NOTE | 2019-08-21 21:34 | PDOC.EVN ---
Event Note - Event Note Event Note: SHORT STAY SUMMARY Admit and discharge date: 08/21/19 Resident: Jillian Curtis Admitting and Discharge Attending: Dr. Landon Barkley Consults: none Procedures: CT brain: neg CTA head/neck: no stenosis MRI: no acute process Primary Dx: TIA vs complex migraine Secondary Dx: Anxiety/Depression Discharge Medications: wellbutrin and xanax (home meds) Discontinued meds none HPI/Hospital Course: This is a 63yo F who presented as a transfer from [facility] to our ER for a TIA/Stroke rule out. She had been running early this morning and had a fall. She did not have any slurred speech, vision changes, weakness, seizure-like activity, SOB, or chest pain. She was unsure the mechanism of the fall. She has a hx of anxiety/depression. Fam hx of strokes. Prior hx of cocaine use. Not currently on a statin or ASA. The patient had a normal CT head and CTA head and neck. Her EKG showed NSR. She was admitted for an MRI to further work up. She had to be sedated for the MRI due to severe claustrophobia. Patient tolerated procedure well and MRI was negative for any acute process. A FLP was done in Nov 2018 - her ASCVD risk is 4.8% and therefore statin is not indicated. Her HbA1c was 5.5. Her PCP was contacted and informed that she was seen today at [facility]. The patient will have close f/u with her PCP to discuss risks/benefits of statin as well as ASA therapy. Patient agreeable to plan. Disposition: Stable Discharge Instructions: 1. Location: home 2. Diet: regular 3. Activity: Ad bettie 4. Follow up with Dr. Mathews within 5-7 days.
[2019-08-22] MEDS ORDERED: Aspirin 81 mg Enteric Coated Tablet PO SCH (09:00)
[2019-08-22] MEDS ORDERED: Bupropion 150 MG SR TAB PO SCH (09:00)
== END 2019-08-21 19:14 | disposition home or self-care (01) ==
LOC: ERS 07:48 → 2SE 08:25 → INTOOBSV 08:25
PROVIDERS: ADMIT Family Medicine; ATTEND Family Medicine
DX: G45.9 Transient cerebral ischemic attack, unspecified (principal); D64.9 Anemia, unspecified; F41.9 Anxiety disorder, unspecified; F32.9 Major depressive disorder, single episode, unspecified; Z79.899 Other long term (current) drug therapy; Z87.891 Personal history of nicotine dependence; Z88.1 Allergy status to other antibiotic agents; W17.81XA Fall down embankment (hill), initial encounter; Y93.02 Activity, running
CPT/HCPCS: 70551; 80306; 81015; 82607; 82728; 82746; 83036; 83540; 83550; 84466; G0378; J2001; J2250; J2704

== ENCOUNTER 2020-03-21 07:35 | Emergency (ER) | payer BC ==
[2020-03-21] MEDS ORDERED: HYDROcodone/Acetaminophen 5/325 mg Tablet ONE (08:28)
--- NOTE | 2020-03-21 13:03 | RAD ---
LEFT KNEE FOUR VIEWS: History: Trauma FINDINGS: There are degenerative changes of the knee. The joint spaces are maintained. No evidence of fracture. No evidence of joint effusion. IMPRESSION: No evidence of acute fracture. There are mild degenerative changes noted. POS: AGW
--- NOTE | 2020-03-21 13:05 | RAD ---
RIGHT FOOT THREE VIEWS: History: Fall with injury. Comparison: Right foot films, 10-08-19 FINDINGS: The tarsals appear intact. Metatarsals appear intact. Deformity in the mid shaft of the proximal phalanx of the great toe is seen. This is at the site of a previous fracture as on the films of 2019. No acute fracture identified. IMPRESSION: No acute findings. POS: AGW
--- NOTE | 2020-03-21 13:06 | RAD ---
RIGHT ANKLE THREE VIEWS: History: Fall with injury. FINDINGS: No significant soft tissue swelling. No acute fracture identified. IMPRESSION: No acute findings. POS: AGW
== END 2020-03-21 09:37 | disposition home or self-care (01) ==
LOC: ERS 07:35
DX: S93.401A Sprain of unspecified ligament of right ankle, initial encounter (principal); M25.562 Pain in left knee; E78.5 Hyperlipidemia, unspecified; F41.9 Anxiety disorder, unspecified; Z87.891 Personal history of nicotine dependence; W18.30XA Fall on same level, unspecified, initial encounter